=== PATIENT | female | born 1995 | race Hispanic/Latino ===

== ENCOUNTER 2018-07-06 23:02 | Emergency (ER) | payer OTHER ==
[2018-07-06 23:26] LABS: APPEARANCE,URINE Clear (CLEAR); BILIRUBIN,URINE Negative (NEGATIVE); COLOR,URINE Yellow (YELLOW); GLUCOSE, URINE (UA) Negative (NEGATIVE); KETONES,URINE Negative (NEGATIVE); LEUKOCYTE ESTERASE ,URINE Negative (NEGATIVE); NITRATE,URINE Negative (NEGATIVE); OCCULT BLOOD,URINE Small (NEGATIVE); PH,URINE 6.5 (5.0-8.0); PROTEIN,URINE Negative (NEGATIVE); UROBILINOGEN,URINE 0.2 mg/dL (0.2-1.0)
[2018-07-06 23:28] LABS: BACTERIA,URINE None Seen /HPF (None Seen); HCG,QUAL RESULT NEGATIVE (NEGATIVE); RBC,URINE None Seen /HPF (0-1); WBC,URINE None Seen /HPF (0-1)
[2018-07-06 23:29] LABS: SQUAMOUS EPITHELIAL CELL,UR Few /HPF (0-2)
[2018-07-07] MEDS ORDERED: KETOROLAC TROMETHAMINE 30MG/ML ONE (00:58)
[2018-07-07] MEDS ORDERED: ONDANSETRON HCL 4 MG/2 ML VIAL ONE (00:58)
[2018-07-07 01:00] LABS: BASOPHILS % (AUTO) 0.2 % (0.0-5.0); EOSINOPHILS % (AUTO) 0.4 % (0.0-8.0); HEMATOCRIT 37.7 % (36-48); LYMPHOCYTES % (AUTO) 3.9 % (21.0-51.0); MEAN CORPUSCULAR HEMOGLOBIN 28.7 pg (27.0-33.0); MEAN CORPUSCULAR HGB CONC 33.1 g/dL (32.0-36.0); MEAN CORPUSCULAR VOLUME 86.7 fL (79-99); NEUTROPHILS % (AUTO) 90.5 % (40.0-77.0); PLATELET COUNT (AUTO) 269 K/uL (130-400); RED BLOOD CELL COUNT(AUTO) 4.35 MIL/uL (4.00-5.50); RED CELL DISTRIBUTION WIDTH 15.5 % (11.0-15.5); WHITE BLOOD COUNT (AUTO) 7.7 K/uL (4.8-10.8)
[2018-07-07 01:10] LABS: CREATININE 0.7 mg/dL (0.5-1.5); POTASSIUM 3.4 mmol/L (3.5-5.1)
[2018-07-07 01:14] LABS: ALBUMIN 4.4 g/dL (3.5-5.0); BILIRUBIN,TOTAL 0.8 mg/dL (0.2-1.0)
== END 2018-07-07 03:08 | disposition home or self-care (01) ==
LOC: EDH 23:02
DX: R55 Syncope and collapse (principal); M54.6 Pain in thoracic spine; Z98.890 Other specified postprocedural states
CPT/HCPCS: 36415; 71046; 80053; 81001; 81025; 83690; 85025; 96361; 96374; 96375; 99284; J1885; J2405

== ENCOUNTER 2024-09-15 06:19 | Day surgery (SDC) | payer OTHER ==
[2024-09-10 13:30] LABS: BASOPHILS # (AUTO) 0.06 K/uL (0.00-0.20); BASOPHILS % (AUTO) 0.8 % (0.0-5.0); EOSINOPHILS # (AUTO) 0.22 K/uL (0.00-0.70); EOSINOPHILS % (AUTO) 2.9 % (0.0-8.0); HEMATOCRIT 41.2 % (36-48); IMMATURE GRANULOCYTE ABSOLUTE 0.01 K/uL (0-1); LYMPHOCYTES % (AUTO) 26.9 % (21.0-51.0); MEAN CORPUSCULAR VOLUME 90.9 fL (79-99); MONOCYTES # (AUTO) 0.6 K/uL (0.1-1.0); MONOCYTES % (AUTO) 8.4 % (3.0-13.0); NEUTROPHILS # (AUTO) 4.6 K/uL (1.8-7.7); NEUTROPHILS % (AUTO) 60.9 % (40.0-77.0); PLATELET COUNT (AUTO) 320 K/uL (130-400); RED BLOOD CELL COUNT(AUTO) 4.53 MIL/uL (4.00-5.50); RED CELL DISTRIBUTION WIDTH 14.6 % (11.0-15.5); WHITE BLOOD COUNT (AUTO) 7.5 K/uL (4.8-10.8)
[2024-09-10 13:32] VITALS: BP 116/63; PULSE 78; RESP 19; TEMP 98.4
[2024-09-10 13:35] LABS: INR 0.96 (0.85-1.15); PROTHROMBIN TIME 10.2 SEC (9.6-11.6)
[2024-09-10 13:38] LABS: ALBUMIN 4.1 g/dL (3.5-5.0); BILIRUBIN,TOTAL 0.4 mg/dL (0.2-1.0); CREATININE 0.6 mg/dL (0.5-1.0); POTASSIUM 4.3 mmol/L (3.5-5.1); TOTAL PROTEIN, SERUM 7.5 g/dL (6.0-8.3)
[2024-09-15] VITALS (19 sets, daily range): BP systolic 109–120; BP diastolic 52–71; PULSE 80–109; RESP 14–18; TEMP 97.2–97.9
[~2024-09-15] VITALS: Ht 165.1 cm; Wt 80.0 kg
[~2024-09-15 06:19] MED LIST: BUSP5TAB3 PO; SERT-438 PO
[2024-09-15] MEDS: dexaMETHasone SOD PHOSPHATE 4 MG/ML 1ML VIAL ONE (07:04)
[2024-09-15] MEDS: PHENAZOpyridine HCL 200 MG TAB 200 MG TABLET ONE (07:04)
[2024-09-15] MEDS: ceFAZolin SODIUM 1 GM VIAL ONE (07:04)
[2024-09-15] MEDS: SCOPOLAMINE HYDROBROMIDE 1 EACH ADH..PATCH TD ONE (07:05)
[2024-09-15] MEDS: LACTATED RINGERS 1000ML 1,000 ML IV ONE (07:05)
[2024-09-15] MEDS ORDERED: MIDAZOLAM HCL 1 MG/ML 2ML VIAL ONE (07:33)
[2024-09-15] MEDS ORDERED: FENTanyl CITRate PF 50 MCG/1 ML 2ML VIAL ONE ×3 (07:33→10:12)
[2024-09-15] MEDS ORDERED: ketaMINE 50MG/ML SYRINGE 50 MG/ML DISP.SYRIN ONE (07:48)
[2024-09-15] MEDS ORDERED: ondanSETRON 4MG INJ ONE (07:50)
[2024-09-15] MEDS ORDERED: proPOFol 10 MG/ML 20ML VIAL IV ONE (07:50)
[2024-09-15] MEDS ORDERED: rocuRONium bROMide 10MG/1ML 5ML VL ONE ×2 (07:51→09:32)
[2024-09-15] MEDS ORDERED: BUPIvacaine/PF 0.25% 30ML VIAL IJ ONE (08:10)
[2024-09-15] MEDS: ceFAZolin SODIUM 1 GM VIAL IVPB ONE (08:15)
[2024-09-15] MEDS ORDERED: ketOROlac 30MG VIAL (30MG/ML) ONE (10:07)
[2024-09-15] MEDS ORDERED: NEOSTIGMINE METHYLSULFATE 1MG/ML IV ONE (10:07)
[2024-09-15] MEDS ORDERED: GLYCOPYRROLATE 0.2 MG/ML 5 ML VIAL ONE (10:07)
--- NOTE | 2024-09-15 10:17 | OP ---
Operative Note: DATE OF PROCEDURE: 09/15/24 SURGEON: SUNSHINE NAZARIO MD SOLE INKER: [none] ANESTHESIA: [General] ANESTHESIOLOGIST/FILLING LAYER UP: [Matthew FILLING LAYER UP] PREOPERATIVE DIAGNOSIS: [Pelvic pain, adnexal mass] POSTOPERATIVE DIAGNOSIS: [same plus endometriosis] SYNOPSIS: [na] PROCEDURE: [daVinci excision of left adnexal mass, dilation and Curettage, ch romotubation] ESTIMATED BLOOD LOSS: [less than 10 cc] INDICATIONS: [na] DESCRIPTION OF PROCEDURE: [The patient and her mother were visited in the holding area and the operation explained in plain [place] and the patient had no new questions, reported a new allergy to codeine, hives, and was ready to proceed. She was taken to the operating room and placed under general anesthes ia, prepped and draped in the usual sterile fashion in the universal stirrups and a time out was taken to confirm the patient's identity, her allergies, medication administration and the planned procedure. A right angle was placed in the vagina and the anterior lip of the cervix grasped, the uterus sounded to 8-9 cm and all surfaces were curetted until gritty with return of a moderate to large amount of tissue, the uterine manipulator was placed and the right angles and single tooth tenaculum were removed, a valles was placed which drained bright orange urine. The patient was placed flat and confirmation of stomach emptying was done, infiltration, incision and placement of the Veress needle in the left upper quadrant in the mid-clavicular line about 2 cm below the costal margin was done and sterile saline and drop test were performed, the abdomen was insufflated to a good dome and the direct visualation davinci trocar,camera and sleeve were introduced with findings of no trauma noted, the patient was placed in steep trendelenberg and the pelvis explored with findings of endometriosis areas on the anterior uterus below the origin of the round ligament on the left and near the origin of the tube on the right, along the right round ligament and tube, scattered along the posterior uterus and in the ovarian fossae, normal appearing right tube and ovary and left ovary with a multiloculated clear cyst involving mostly the tube, and a fibroid on the posterior right lower uterus. Photographs were taken. Chromotubation was done and the right tube filled and spilled, the left tube filled to just above the fimbria where the tube was stretched over the cysts and did not spill. Infiltration, incision and placement of a midline airseal and cathy close and a right sided davinci sleeve were carried out atraumatically under direct vision and patient was taken out of trendelenberg just enough to keep the small bowel out of the field. The robot was docked and monopolar scissors and fenestrated bipolar forceps were used to mostly bluntly, sharply and occasionally with hot incise and remove the two cysts from their beds. The was very little bleeding at the end of the dissection. Chromotubation was done again and the left tube now filled and spilled easily. The instruments were removed and the robot undocked, and the pelvis was irrigated and suctioned and the cysts were placed into an endobag and brought to the umbilical incision and then drained and brought out of the abdomen, the remaining sleeves were removed, the cathy close was tied ath the umbilicus, 4-0 monocryl was used to close the incisions. The uterine manipulator and valles were removed. The patient tolerated the procedure well, sponge, lap and needle counts were correct at the end of the case and the patient was taken to the recovery room in stable condition, the patient's mother will be called and notified of the findings and the patient's stability. ] SUNSHINE NAZARIO MD September 15, 2024 10:17
[2024-09-15] MEDS: FENTanyl CITRate PF 50 MCG/1 ML 2ML VIAL ONE (10:47)
--- NOTE | 2024-09-15 14:00 | NUR ---
Full and complete Discharge Instructions given to Patient and Family both verbally and in writing.. All questions answered.Voiced understanding to Onofre Garcia procedure precautions and Follow Up. PIV removed with catheter tip intact. Patient ambulated 300 ft and voided 550 urine. Denies c/o pain or discomfort. W/C to POV with Family to home.
== END 2024-09-15 14:00 | disposition home or self-care (01) ==
LOC: DAH 06:19
PROVIDERS: ATTEND Obstetrics & Gynecology
DX: R10.2 Pelvic and perineal pain (principal); N83.292 Other ovarian cyst, left side; N83.8 Other noninflammatory disorders of ovary, fallopian tube and broad ligament; F41.9 Anxiety disorder, unspecified; Z79.899 Other long term (current) drug therapy; Z82.49 Family history of ischemic heart disease and other diseases of the circulatory system; Z83.3 Family history of diabetes mellitus; Z90.89 Acquired absence of other organs
CPT/HCPCS: 58350; 58662; S2900; 36415; 80053; 81025; 84703; 85025; 85610; 85730; 86850; 86900; 86901; 88305; A4344; J0690; J1100; J1885; J2250; J2405; J2704; J2710; J3010; J3490; J7030; J7120; Q9968; A4215; A4216; A4221; A4222; A4223; A4335; A4510; A4600; A4649; A4663; J0665